=== PATIENT | female | born 2000 | race Hispanic/Latino ===

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

== ENCOUNTER 2022-08-03 20:06 | Observation (INO) | payer BC, MEDICAID ==
[~2022-08-03] VITALS: Ht 157.5 cm; Wt 103.0 kg
[2022-08-03] MEDS ORDERED: LACTATED RINGERS 1000ML 1,000 ML IV SCH (20:30)
[2022-08-03 20:55] VITALS: BP 128/72
[2022-08-03 21:03] LABS: APPEARANCE,URINE CLEAR (CLEAR); BILIRUBIN,URINE NEGATIVE (NEGATIVE); COLOR,URINE LIGHT-YELLOW (YELLOW); GLUCOSE, URINE (UA) 30 mg/dL (NEGATIVE); KETONES,URINE NEGATIVE (NEGATIVE); LEUKOCYTE ESTERASE ,URINE 25 Leu/uL (NEGATIVE); NITRATE,URINE NEGATIVE (NEGATIVE); OCCULT BLOOD,URINE NEGATIVE (NEGATIVE); PROTEIN,URINE NEGATIVE (NEGATIVE); UROBILINOGEN,URINE 0.2 mg/dL (0.2-1.0)
[2022-08-03 21:06] LABS: MUCUS,URINE RARE LPF (None Seen); RBC,URINE 0-1 /HPF (0-1); SQUAMOUS EPITHELIAL CELL,UR FEW /HPF (0-2)
== END 2022-08-03 21:45 | disposition home or self-care (01) ==
LOC: EDH 20:06 → LDH 20:07 → EDH 20:13
PROVIDERS: ADMIT Obstetrics & Gynecology; ATTEND Obstetrics & Gynecology
DX: O26.893 Other specified pregnancy related conditions, third trimester (principal); R10.32 Left lower quadrant pain; Z3A.37 37 weeks gestation of pregnancy
CPT/HCPCS: 81001; G0378 ×2; G0379

== ENCOUNTER 2022-08-12 23:55 | Observation (INO) | payer MEDICAID ==
[~2022-08-12] VITALS: Ht 157.5 cm; Wt 102.5 kg
[2022-08-12 23:56] VITALS: BP 136/70
[2022-08-13] MEDS ORDERED: PREN-196 PO (00:15)
[2022-08-13 00:27] LABS: APPEARANCE,URINE CLEAR (CLEAR); BILIRUBIN,URINE NEGATIVE (NEGATIVE); COLOR,URINE LIGHT-YELLOW (YELLOW); GLUCOSE, URINE (UA) NEGATIVE (NEGATIVE); KETONES,URINE NEGATIVE (NEGATIVE); LEUKOCYTE ESTERASE ,URINE NEGATIVE Leu/uL (NEGATIVE); NITRATE,URINE NEGATIVE (NEGATIVE); OCCULT BLOOD,URINE NEGATIVE (NEGATIVE); PROTEIN,URINE NEGATIVE (NEGATIVE); UROBILINOGEN,URINE 0.2 mg/dL (0.2-1.0)
[2022-08-13 01:05] LABS: AMPHET/METH SCREEN,URINE NEGATIVE (NEGATIVE); BARBITURATE SCREEN, URINE NEGATIVE (NEGATIVE); BENZODIAZEPINES SCREEN,URINE NEGATIVE (NEGATIVE); CANNABINOID SCREEN,URINE NEGATIVE (NEGATIVE); COCAINE SCREEN,URINE NEGATIVE (NEGATIVE); OPIATE SCREEN,URINE NEGATIVE (NEGATIVE); PHENCYCLIDINE SCREEN,URINE NEGATIVE (NEGATIVE)
[2022-08-13] MEDS ORDERED: LACTATED RINGERS 1000ML 1,000 ML IV SCH (02:30)
[2022-08-13] MEDS ORDERED: PROMETHAZINE HCL 25 MG/ML 1ML AMPULE IM PRN (03:00)
[2022-08-13] MEDS ORDERED: MEPERIDINE-PF 50 MG/ML SYG IVP PRN (03:00)
[2022-08-14] MEDS ORDERED: ACET-2079 PO (15:08)
== END 2022-08-13 03:45 | disposition home or self-care (01) ==
LOC: EDH 23:55 → LDH 08-13 00:08 → UNDOADMOB 08-13 00:08
PROVIDERS: ADMIT Obstetrics & Gynecology; ATTEND Obstetrics & Gynecology
DX: O26.899 Other specified pregnancy related conditions, unspecified trimester (principal); R10.9 Unspecified abdominal pain; Z3A.00 Weeks of gestation of pregnancy not specified
CPT/HCPCS: 96361; 96360; 80305; 81003; G0378 ×4; G0379; J7120

== ENCOUNTER 2022-09-13 02:32 | Emergency (ER) | payer MEDICAID ==
[~2022-09-13] VITALS: Ht 157.5 cm; Wt 93.4 kg
[~2022-09-13 02:32] MED LIST: ACET-2079 PO; PREN-196 PO
[2022-09-13 04:16] LABS: BASOPHILS % (AUTO) 0.7 % (0.0-5.0); EOSINOPHILS % (AUTO) 3.7 % (0.0-8.0); HEMATOCRIT 36.3 % (36-48); LYMPHOCYTES % (AUTO) 25.4 % (21.0-51.0); MEAN CORPUSCULAR HEMOGLOBIN 28.9 pg (27.0-33.0); MEAN CORPUSCULAR HGB CONC 32.5 g/dL (32.0-36.0); MONOCYTES % (AUTO) 6.4 % (3.0-13.0); NEUTROPHILS % (AUTO) 63.4 % (40.0-77.0); PLATELET COUNT (AUTO) 247 K/uL (130-400); RED BLOOD CELL COUNT(AUTO) 4.08 MIL/uL (4.00-5.50); RED CELL DISTRIBUTION WIDTH 12.6 % (11.0-15.5); WHITE BLOOD COUNT (AUTO) 7.4 K/uL (4.8-10.8)
[2022-09-13 04:18] LABS: APPEARANCE,URINE CLOUDY (CLEAR); BILIRUBIN,URINE NEGATIVE (NEGATIVE); COLOR,URINE LIGHT-YELLOW (YELLOW); GLUCOSE, URINE (UA) NEGATIVE (NEGATIVE); KETONES,URINE NEGATIVE (NEGATIVE); LEUKOCYTE ESTERASE ,URINE 25 Leu/uL (NEGATIVE); NITRATE,URINE NEGATIVE (NEGATIVE); OCCULT BLOOD,URINE MODERATE (NEGATIVE); PROTEIN,URINE NEGATIVE (NEGATIVE); UROBILINOGEN,URINE 0.2 mg/dL (0.2-1.0)
[2022-09-13 04:24] LABS: BACTERIA,URINE RARE /HPF (None Seen); MUCUS,URINE RARE LPF (None Seen); SQUAMOUS EPITHELIAL CELL,UR MOD /HPF (0-2)
[2022-09-13 04:24] LABS: CREATININE 0.9 mg/dL (0.5-1.5); POTASSIUM 3.8 mmol/L (3.5-5.1)
[2022-09-13 04:29] LABS: ALBUMIN 3.5 g/dL (3.5-5.0); TOTAL PROTEIN, SERUM 6.7 g/dL (6.0-8.3)
[2022-09-13] MEDS ORDERED: CEPH500B PO (05:27)
[2022-09-13 05:44] VITALS: BP 116/89
== END 2022-09-13 05:46 | disposition home or self-care (01) ==
LOC: EDH 02:32
DX: N83.201 Unspecified ovarian cyst, right side (principal); N39.0 Urinary tract infection, site not specified; Z48.89 Encounter for other specified surgical aftercare; Z90.89 Acquired absence of other organs; Z79.899 Other long term (current) drug therapy
CPT/HCPCS: 36415; 74176; 80053; 81001; 84703; 85025

== ENCOUNTER 2022-10-15 08:12 | Emergency (ER) | payer OTHER, MEDICAID ==
[~2022-10-15] VITALS: Ht 157.5 cm; Wt 90.7 kg
[~2022-10-15 08:12] MED LIST changes: +CEPH500B PO
[2022-10-15] MEDS ORDERED: PANTOPRAZOLE 40 MG/VIAL IVP ONE (08:30)
[2022-10-15 08:37] LABS: HCG,QUALITATIVE URINE NEGATIVE (NEGATIVE)
[2022-10-15 08:38] LABS: APPEARANCE,URINE CLEAR (CLEAR); BILIRUBIN,URINE SMALL mg/dL (NEGATIVE); COLOR,URINE YELLOW (YELLOW); GLUCOSE, URINE (UA) NEGATIVE (NEGATIVE); KETONES,URINE 5 mg/dL (NEGATIVE); LEUKOCYTE ESTERASE ,URINE NEGATIVE Leu/uL (NEGATIVE); NITRATE,URINE NEGATIVE (NEGATIVE); OCCULT BLOOD,URINE NEGATIVE (NEGATIVE); PROTEIN,URINE TRACE mg/dL (NEGATIVE); UROBILINOGEN,URINE 0.2 mg/dL (0.2-1.0)
[2022-10-15 08:42] LABS: BASOPHILS % (AUTO) 0.6 % (0.0-5.0); EOSINOPHILS % (AUTO) 1.6 % (0.0-8.0); LYMPHOCYTES % (AUTO) 22.5 % (21.0-51.0); MEAN CORPUSCULAR HEMOGLOBIN 29.8 pg (27.0-33.0); MEAN CORPUSCULAR HGB CONC 34.4 g/dL (32.0-36.0); MEAN CORPUSCULAR VOLUME 86.9 fL (80-100); MONOCYTES % (AUTO) 5.6 % (3.0-13.0); NEUTROPHILS % (AUTO) 69.4 % (40.0-77.0); PLATELET COUNT (AUTO) 294 K/uL (130-400); RED BLOOD CELL COUNT(AUTO) 4.49 MIL/uL (4.00-5.50); RED CELL DISTRIBUTION WIDTH 12.5 % (11.0-15.5)
[2022-10-15 08:52] LABS: CREATININE 0.9 mg/dL (0.5-1.5)
[2022-10-15 08:56] LABS: MUCUS,URINE Moderate LPF (None Seen)
[2022-10-15 08:57] LABS: BACTERIA,URINE Few /HPF (None Seen); RBC,URINE None Seen /HPF (0-1); WBC,URINE 0-1 /HPF (0-1)
[2022-10-15 08:57] LABS: ALBUMIN 3.9 g/dL (3.5-5.0); TOTAL PROTEIN, SERUM 7.4 g/dL (6.0-8.3)
[2022-10-15 09:10] LABS: AMPHET/METH SCREEN,URINE NEGATIVE (NEGATIVE); BARBITURATE SCREEN, URINE NEGATIVE (NEGATIVE); BENZODIAZEPINES SCREEN,URINE NEGATIVE (NEGATIVE); CANNABINOID SCREEN,URINE NEGATIVE (NEGATIVE); COCAINE SCREEN,URINE NEGATIVE (NEGATIVE); OPIATE SCREEN,URINE NEGATIVE (NEGATIVE); PHENCYCLIDINE SCREEN,URINE NEGATIVE (NEGATIVE)
[2022-10-15] MEDS ORDERED: NAPR-1192 PO (10:45)
[2022-10-15 10:55] VITALS: BP 128/81
== END 2022-10-15 10:55 | disposition home or self-care (01) ==
LOC: EDH 08:12
DX: K80.20 Calculus of gallbladder without cholecystitis without obstruction (principal)
CPT/HCPCS: 99284; 96374; 76705; 80053; 80305; 83690; 85025; 81001; 81025; 36415; C9113

== ENCOUNTER 2022-10-27 20:54 | Emergency (ER) | payer OTHER, MEDICAID ==
[~2022-10-27] VITALS: Ht 157.5 cm; Wt 90.3 kg
[~2022-10-27 20:54] MED LIST changes: +NAPR-1192 PO
[2022-10-27] MEDS ORDERED: MORPHINE 2 MG SYG IVP ONE (22:30)
[2022-10-27] MEDS ORDERED: ONDANSETRON 4MG INJ IVP ONE (22:30)
[2022-10-27 22:35] LABS: BASOPHILS % (AUTO) 0.3 % (0.0-5.0); EOSINOPHILS % (AUTO) 0.3 % (0.0-8.0); HEMATOCRIT 41.5 % (36-48); LYMPHOCYTES % (AUTO) 19.3 % (21.0-51.0); MEAN CORPUSCULAR HEMOGLOBIN 29.9 pg (27.0-33.0); MEAN CORPUSCULAR HGB CONC 34.2 g/dL (32.0-36.0); MEAN CORPUSCULAR VOLUME 87.4 fL (80-100); MONOCYTES % (AUTO) 6.3 % (3.0-13.0); NEUTROPHILS % (AUTO) 73.6 % (40.0-77.0); PLATELET COUNT (AUTO) 321 K/uL (130-400); RED BLOOD CELL COUNT(AUTO) 4.75 MIL/uL (4.00-5.50); RED CELL DISTRIBUTION WIDTH 12.1 % (11.0-15.5); WHITE BLOOD COUNT (AUTO) 12.3 K/uL (4.8-10.8)
[2022-10-27 22:40] LABS: APPEARANCE,URINE CLEAR (CLEAR); BILIRUBIN,URINE NEGATIVE (NEGATIVE); COLOR,URINE YELLOW (YELLOW); GLUCOSE, URINE (UA) NEGATIVE (NEGATIVE); HCG,QUALITATIVE URINE NEGATIVE (NEGATIVE); KETONES,URINE NEGATIVE (NEGATIVE); LEUKOCYTE ESTERASE ,URINE NEGATIVE Leu/uL (NEGATIVE); NITRATE,URINE NEGATIVE (NEGATIVE); OCCULT BLOOD,URINE NEGATIVE (NEGATIVE); PH,URINE 6.5 (5.0-8.0); PROTEIN,URINE 10 mg/dL (NEGATIVE)
[2022-10-27 22:43] LABS: CREATININE 0.8 mg/dL (0.5-1.5); POTASSIUM 3.5 mmol/L (3.5-5.1)
[2022-10-27 22:46] LABS: MUCUS,URINE FEW LPF (None Seen); RBC,URINE 0-1 /HPF (0-1); SQUAMOUS EPITHELIAL CELL,UR FEW /HPF (0-2)
[2022-10-27 22:47] LABS: ALBUMIN 4.3 g/dL (3.5-5.0); TOTAL PROTEIN, SERUM 8.2 g/dL (6.0-8.3)
[2022-10-28 00:07] VITALS: BP 124/76
[2022-10-28] MEDS ORDERED: LOPE-198 PO (00:17)
[2022-10-28] MEDS ORDERED: DICY20TA2 PO (00:17)
== END 2022-10-28 00:34 | disposition home or self-care (01) ==
LOC: EDH 20:54
DX: K80.50 Calculus of bile duct without cholangitis or cholecystitis without obstruction (principal); K52.9 Noninfective gastroenteritis and colitis, unspecified; R74.8 Abnormal levels of other serum enzymes; K75.9 Inflammatory liver disease, unspecified; Z90.89 Acquired absence of other organs; Z79.899 Other long term (current) drug therapy
CPT/HCPCS: 99284; 96374; 76705; 96375; 80053; 83690; 85025; 81001; 81025; 36415; J2405

== ENCOUNTER 2022-10-28 07:12 | Inpatient (IN) | payer OTHER, MEDICAID ==
[~2022-10-28] VITALS: Ht 157.5 cm; Wt 92.5 kg
[~2022-10-28 07:12] MED LIST changes: +DICY20TA2 PO; +LOPE-198 PO
[2022-10-28] MEDS ORDERED: PANTOPRAZOLE 40 MG/VIAL IVP ONE (07:30)
[2022-10-28 07:39] LABS: BASOPHILS % (AUTO) 0.4 % (0.0-5.0); EOSINOPHILS % (AUTO) 0.6 % (0.0-8.0); HEMATOCRIT 40.1 % (36-48); LYMPHOCYTES % (AUTO) 15.1 % (21.0-51.0); MEAN CORPUSCULAR HEMOGLOBIN 30.3 pg (27.0-33.0); MEAN CORPUSCULAR HGB CONC 34.4 g/dL (32.0-36.0); MEAN CORPUSCULAR VOLUME 87.9 fL (80-100); MONOCYTES % (AUTO) 5.7 % (3.0-13.0); NEUTROPHILS % (AUTO) 77.8 % (40.0-77.0); PLATELET COUNT (AUTO) 310 K/uL (130-400); RED BLOOD CELL COUNT(AUTO) 4.56 MIL/uL (4.00-5.50); RED CELL DISTRIBUTION WIDTH 12.1 % (11.0-15.5)
[2022-10-28 07:42] LABS: APPEARANCE,URINE CLOUDY (CLEAR); BILIRUBIN,URINE 1 mg/dL (NEGATIVE); COLOR,URINE DARK-YELLOW (YELLOW); GLUCOSE, URINE (UA) NEGATIVE (NEGATIVE); KETONES,URINE NEGATIVE (NEGATIVE); LEUKOCYTE ESTERASE ,URINE 25 Leu/uL (NEGATIVE); NITRATE,URINE NEGATIVE (NEGATIVE); OCCULT BLOOD,URINE NEGATIVE (NEGATIVE); PH,URINE 7.5 (5.0-8.0); PROTEIN,URINE 20 mg/dL (NEGATIVE); UROBILINOGEN,URINE >=8.0 mg/dL (0.2-1.0)
[2022-10-28 07:44] LABS: HCG,QUALITATIVE URINE NEGATIVE (NEGATIVE)
[2022-10-28 07:49] LABS: CREATININE 0.9 mg/dL (0.5-1.5); POTASSIUM 3.7 mmol/L (3.5-5.1)
[2022-10-28] MEDS ORDERED: 0.9%NACL 1000ML 1,000 ML IV ONE (08:00)
[2022-10-28 08:03] LABS: ALBUMIN 4.1 g/dL (3.5-5.0); MUCUS,URINE Few LPF (None Seen); SQUAMOUS EPITHELIAL CELL,UR Moderate /HPF (0-2); TOTAL PROTEIN, SERUM 7.9 g/dL (6.0-8.3)
[2022-10-28 08:04] LABS: BACTERIA,URINE Few /HPF (None Seen); RBC,URINE 0-1 /HPF (0-1)
[2022-10-28] MEDS ORDERED: ZOSYN 3.375GM +NS 50ML IVPB ONE (09:30)
[2022-10-28] MEDS ORDERED: 0.9%NACL 50ML IV SCH (12:30)
[2022-10-28] MEDS: PANTOPRAZOLE 40 MG/VIAL IVP SCH (12:30)
[2022-10-28] MEDS ORDERED: MORPHINE 2 MG SYG IVP PRN (12:30)
[2022-10-28] MEDS ORDERED: KETOROLAC 15MG/ML VIAL (15MG/ML) IV PRN (12:30)
[2022-10-28] MEDS: LACTATED RINGERS 1000ML 1,000 ML IV SCH (12:50)
[2022-10-28] MEDS: THIAMINE HCL 100 MG/ML 2ML VIAL IVP SCH (12:50)
[2022-10-28 13:40] LABS: HEMOGLOBIN A1C 4.7 % (4.0-6.0)
[2022-10-28 13:56] LABS: THYROID STIMULATING HORMONE 0.89 uIU/mL (0.36-3.74)
[2022-10-28 13:58] LABS: ACETAMINOPHEN < 1 mcg/mL (10-30); ALCOHOL, BLOOD < 3 mg/dL (0-10); CRP QUANTITATIVE < 2.00 mg/L (0.00-9.0); SALICYLATE < 2.8 mg/dL (2.8-20.0)
[2022-10-28] MEDS: ZOSYN 3.375GM +NS 50ML IVPB SCH ×2 (14:00→21:10)
[2022-10-28 14:51] VITALS: BP 137/69
[2022-10-28 16:00] VITALS: BP 125/76
[2022-10-28 20:03] LABS: ALBUMIN 3.6 g/dL (3.5-5.0); BILIRUBIN,DIRECT 0.3 mg/dL (0.0-0.3)
[2022-10-28 20:08] VITALS: BP 118/60
[2022-10-28 20:34] LABS: HEPATITIS A IGM ANTIBODY Non-Reactive (Nonreactive); HEPATITIS B SURFACE ANTIGEN Non-Reactive (Nonreactive); HEPATITIS C ANTIBODY Non-Reactive (Nonreactive)
[2022-10-28 20:35] LABS: HEPATITIS B CORE IGM ANTIBODY Non-Reactive (Negative)
[2022-10-28 23:58] VITALS: BP 112/61
[2022-10-29] MEDS: LACTATED RINGERS 1000ML 1,000 ML IV SCH ×2 (01:50→15:10)
[2022-10-29 03:44] VITALS: BP 115/73
[2022-10-29 05:24] LABS: BASOPHILS % (AUTO) 0.6 % (0.0-5.0); EOSINOPHILS % (AUTO) 2.5 % (0.0-8.0); HEMATOCRIT 36.3 % (36-48); LYMPHOCYTES % (AUTO) 41.6 % (21.0-51.0); MEAN CORPUSCULAR HEMOGLOBIN 29.7 pg (27.0-33.0); MEAN CORPUSCULAR HGB CONC 33.3 g/dL (32.0-36.0); MEAN CORPUSCULAR VOLUME 89.2 fL (80-100); MONOCYTES % (AUTO) 6.1 % (3.0-13.0); NEUTROPHILS % (AUTO) 48.9 % (40.0-77.0); PLATELET COUNT (AUTO) 283 K/uL (130-400); RED BLOOD CELL COUNT(AUTO) 4.07 MIL/uL (4.00-5.50); RED CELL DISTRIBUTION WIDTH 12.5 % (11.0-15.5); WHITE BLOOD COUNT (AUTO) 6.7 K/uL (4.8-10.8)
[2022-10-29 05:34] LABS: ALBUMIN 3.4 g/dL (3.5-5.0); CREATININE 0.9 mg/dL (0.5-1.5); POTASSIUM 3.6 mmol/L (3.5-5.1); TOTAL PROTEIN, SERUM 6.6 g/dL (6.0-8.3)
[2022-10-29] MEDS: ZOSYN 3.375GM +NS 50ML IVPB SCH ×3 (05:44→21:49)
[2022-10-29 07:00] VITALS: BP 122/66
[2022-10-29 11:30] VITALS: BP 124/47
[2022-10-29] MEDS: THIAMINE HCL 100 MG/ML 2ML VIAL IVP SCH (12:30)
[2022-10-29] MEDS: PANTOPRAZOLE 40 MG/VIAL IVP SCH (13:00)
[2022-10-29 16:05] VITALS: BP 120/70
[2022-10-29 19:59] VITALS: BP 102/53
[2022-10-29] MEDS: ENOXAPARIN SODIUM 30 MG/0.3 ML SQ SCH (20:00)
[2022-10-29 23:33] VITALS: BP 129/78
[2022-10-30 03:42] VITALS: BP 121/70
[2022-10-30] MEDS: LACTATED RINGERS 1000ML 1,000 ML IV SCH ×2 (04:30→15:53)
[2022-10-30] MEDS: ZOSYN 3.375GM +NS 50ML IVPB SCH ×3 (06:14→23:23)
[2022-10-30 06:28] LABS: BASOPHILS % (AUTO) 0.7 % (0.0-5.0); HEMATOCRIT 36.5 % (36-48); LYMPHOCYTES % (AUTO) 44.5 % (21.0-51.0); MEAN CORPUSCULAR HEMOGLOBIN 29.5 pg (27.0-33.0); MEAN CORPUSCULAR HGB CONC 33.7 g/dL (32.0-36.0); MEAN CORPUSCULAR VOLUME 87.5 fL (80-100); MONOCYTES % (AUTO) 7.5 % (3.0-13.0); PLATELET COUNT (AUTO) 282 K/uL (130-400); RED BLOOD CELL COUNT(AUTO) 4.17 MIL/uL (4.00-5.50); RED CELL DISTRIBUTION WIDTH 12.3 % (11.0-15.5)
[2022-10-30 06:43] LABS: ALBUMIN 3.8 g/dL (3.5-5.0); CREATININE 0.9 mg/dL (0.5-1.5); POTASSIUM 4.4 mmol/L (3.5-5.1)
[2022-10-30 07:10] VITALS: BP 117/66
[2022-10-30] MEDS: THIAMINE HCL 100 MG/ML 2ML VIAL IVP SCH (07:41)
[2022-10-30 11:00] VITALS: BP 131/66
[2022-10-30] MEDS: PANTOPRAZOLE 40 MG/VIAL IVP SCH (15:32)
[2022-10-30 16:25] VITALS: BP 118/76
[2022-10-30] MEDS: ENOXAPARIN SODIUM 30 MG/0.3 ML SQ SCH (19:48)
[2022-10-30 20:00] VITALS: BP 120/55
[2022-10-31] VITALS (28 sets, daily range): BP systolic 113–149; BP diastolic 64–96
[2022-10-31] MEDS: LACTATED RINGERS 1000ML 1,000 ML IV SCH ×2 (04:39→20:30)
[2022-10-31] MEDS: ZOSYN 3.375GM +NS 50ML IVPB SCH ×3 (05:50→22:02)
[2022-10-31 06:15] LABS: BASOPHILS % (AUTO) 0.6 % (0.0-5.0); EOSINOPHILS % (AUTO) 1.6 % (0.0-8.0); HEMATOCRIT 35.5 % (36-48); LYMPHOCYTES % (AUTO) 42.6 % (21.0-51.0); MEAN CORPUSCULAR HEMOGLOBIN 29.7 pg (27.0-33.0); MEAN CORPUSCULAR HGB CONC 33.5 g/dL (32.0-36.0); MEAN CORPUSCULAR VOLUME 88.5 fL (80-100); MONOCYTES % (AUTO) 8.9 % (3.0-13.0); PLATELET COUNT (AUTO) 277 K/uL (130-400); RED BLOOD CELL COUNT(AUTO) 4.01 MIL/uL (4.00-5.50); RED CELL DISTRIBUTION WIDTH 12.3 % (11.0-15.5); WHITE BLOOD COUNT (AUTO) 6.3 K/uL (4.8-10.8)
[2022-10-31 06:39] LABS: INR 1.1 (0.85-1.15); PROTHROMBIN TIME 11.9 SEC (9.6-11.6)
[2022-10-31 06:40] LABS: PARTIAL THROMBOPLASTIN TIME 30.1 SEC (26.3-35.5)
[2022-10-31] MEDS ORDERED: BUPIVACAINE/PF 0.5% 10ML VIAL ONE ×2 (07:35→07:50)
[2022-10-31] MEDS ORDERED: CEFAZOLIN SODIUM 1 GM VIAL ONE (07:35)
[2022-10-31] MEDS ORDERED: LIDOCAINE HCL 1% 20 ML VIAL ONE (07:35)
[2022-10-31] MEDS ORDERED: MIDAZOLAM HCL 1 MG/ML 2ML VIAL ONE (09:39)
[2022-10-31] MEDS ORDERED: PROPOFOL 10 MG/ML 20ML VIAL IV ONE (09:39)
[2022-10-31] MEDS ORDERED: FENTANYL CITRATE PF 50 MCG/1 ML 2ML VIAL ONE ×2 (09:39→10:05)
[2022-10-31] MEDS ORDERED: ROCURONIUM 10MG/1ML SYR 10 MG/ML ML ONE (09:46)
[2022-10-31] MEDS ORDERED: ONDANSETRON 4MG INJ ONE ×2 (09:54→10:56)
[2022-10-31] MEDS ORDERED: NEOSTIGMINE 5MG/5ML SYR IV ONE (10:31)
[2022-10-31] MEDS ORDERED: GLYCOPYRROLATE 1 MG/5 ML SYRINGE ONE (10:31)
[2022-10-31] MEDS ORDERED: MEPERIDINE-PF 25 MG/ML SYG ONE ×2 (10:57→11:11)
[2022-10-31] MEDS ORDERED: KETOROLAC 30MG VIAL (30MG/ML) ONE (10:57)
[2022-10-31] MEDS: PANTOPRAZOLE 40 MG/VIAL IVP SCH (12:40)
[2022-10-31] MEDS ORDERED: ONDANSETRON 4MG INJ IVP PRN (14:30)
[2022-10-31] MEDS ORDERED: ACETAMINOPHEN 325 MG TAB PO PRN (14:30)
[2022-10-31] MEDS ORDERED: HYDROCODONE/ACETAMINOPHEN 5/325 MG TAB PO PRN (14:30)
[2022-10-31] MEDS: THIAMINE HCL 100 MG/ML 2ML VIAL IVP SCH (16:17)
[2022-10-31] MEDS: HYDROCODONE/ACETAMINOPHEN 10/325 MG TAB PO PRN (18:36)
[2022-11-01 04:00] VITALS: BP 128/73
[2022-11-01] MEDS: ZOSYN 3.375GM +NS 50ML IVPB SCH ×2 (06:47→13:36)
[2022-11-01] MEDS: HYDROCODONE/ACETAMINOPHEN 10/325 MG TAB PO PRN (06:54)
[2022-11-01 07:05] VITALS: BP 125/88
[2022-11-01] MEDS: LACTATED RINGERS 1000ML 1,000 ML IV SCH (09:50)
[2022-11-01 11:00] VITALS: BP 124/72
[2022-11-01] MEDS: PANTOPRAZOLE 40 MG/VIAL IVP SCH (13:36)
[2022-11-01] MEDS: THIAMINE HCL 100 MG/ML 2ML VIAL IVP SCH (13:36)
[2022-11-01 17:31] VITALS: BP 112/70
== END 2022-11-01 18:56 | disposition home or self-care (01) | DRG 418 ==
LOC: EDH 07:12 → EDHIP 12:32 → 3BH 14:40
PROVIDERS: ADMIT Internal Medicine; ATTEND Internal Medicine
PROC: 0FT44ZZ Resection of Gallbladder, Percutaneous Endoscopic Approach (ICD-10-PCS; principal; 2022-10-31 09:58)
DX: K80.00 Calculus of gallbladder with acute cholecystitis without obstruction (principal); N39.0 Urinary tract infection, site not specified; K75.89 Other specified inflammatory liver diseases; Z20.822 Contact with and (suspected) exposure to COVID-19; E66.9 Obesity, unspecified; K52.9 Noninfective gastroenteritis and colitis, unspecified; Z98.891 History of uterine scar from previous surgery; Z86.16 Personal history of COVID-19; Z82.49 Family history of ischemic heart disease and other diseases of the circulatory system; Z68.37 Body mass index [BMI] 37.0-37.9, adult; K82.A1 Gangrene of gallbladder in cholecystitis
CPT/HCPCS: 36415; 74181; 76705; 80048; 80053; 80074; 80076; 81001; 81025; 82784; 83036; 83516; 83630; 83690; 83735; 84145; 84443; 85025; 85610; 85651; 85730; 86140; 87046; 87088; 87177; 87507; 87635; 87804; 96374; C9113; G0378; G0481; J0690; J1650; J1885; J2175; J2250; J2405; J2543; J2704; J2710; J3010; J3411; J3490; J7120

== ENCOUNTER 2023-07-17 11:07 | Emergency (ER) | payer BC, MEDICAID, OTHER ==
[~2023-07-17] VITALS: Ht 154.9 cm; Wt 85.7 kg
[~2023-07-17 11:07] MED LIST changes: -CEPH500B PO; -DICY20TA2 PO; -LOPE-198 PO; -NAPR-1192 PO
[2023-07-17 11:56] LABS: APPEARANCE,URINE CLEAR (CLEAR); BILIRUBIN,URINE NEGATIVE (NEGATIVE); COLOR,URINE LIGHT-YELLOW (YELLOW); GLUCOSE, URINE (UA) NEGATIVE (NEGATIVE); KETONES,URINE NEGATIVE (NEGATIVE); LEUKOCYTE ESTERASE ,URINE NEGATIVE Leu/uL (NEGATIVE); NITRATE,URINE NEGATIVE (NEGATIVE); OCCULT BLOOD,URINE NEGATIVE (NEGATIVE); PH,URINE 6.5 (5.0-8.0); PROTEIN,URINE NEGATIVE (NEGATIVE); UROBILINOGEN,URINE 0.2 mg/dL (0.2-1.0)
[2023-07-17 11:59] LABS: ADD UA MICROSCOPIC NO
[2023-07-17 12:06] LABS: BASOPHILS # (AUTO) 0.02 K/uL (0.00-0.20); BASOPHILS % (AUTO) 0.2 % (0.0-5.0); EOSINOPHILS # (AUTO) 0.01 K/uL (0.00-0.70); EOSINOPHILS % (AUTO) 0.1 % (0.0-8.0); HEMATOCRIT 40.5 % (36-48); IMMATURE GRANULOCYTE ABSOLUTE 0.04 K/uL (0-1); LYMPHOCYTES # (AUTO) 0.5 K/uL (1.0-4.8); LYMPHOCYTES % (AUTO) 4.8 % (21.0-51.0); MEAN CORPUSCULAR HGB CONC 34.6 g/dL (32.0-36.0); MEAN CORPUSCULAR VOLUME 86.7 fL (79-99); MONOCYTES # (AUTO) 0.4 K/uL (0.1-1.0); MONOCYTES % (AUTO) 4.2 % (3.0-13.0); NEUTROPHILS # (AUTO) 8.9 K/uL (1.8-7.7); NEUTROPHILS % (AUTO) 90.3 % (40.0-77.0); PLATELET COUNT (AUTO) 281 K/uL (130-400); RED BLOOD CELL COUNT(AUTO) 4.67 MIL/uL (4.00-5.50); RED CELL DISTRIBUTION WIDTH 12.3 % (11.0-15.5); WHITE BLOOD COUNT (AUTO) 9.9 K/uL (4.8-10.8)
[2023-07-17 12:18] LABS: CREATININE 0.7 mg/dL (0.5-1.5); POTASSIUM 3.6 mmol/L (3.5-5.1)
[2023-07-17 12:44] LABS: ALBUMIN 3.9 g/dL (3.5-5.0); BILIRUBIN,TOTAL 0.6 mg/dL (0.2-1.0); TOTAL PROTEIN, SERUM 7.7 g/dL (6.0-8.3)
[2023-07-17] MEDS ORDERED: LACTATED RINGERS 1000ML 1,000 ML IV ONE (13:00)
[2023-07-17] MEDS ORDERED: ONDANSETRON 4MG INJ IVP ONE (13:00)
[2023-07-17 13:12] LABS: SARS-CoV-2, RNA, NAAT NEGATIVE SARS CoV-2 (NEGATIVE)
[2023-07-17 13:18] LABS: INFLUENZA TYPE A Negative For Type A (NEGATIVE); INFLUENZA TYPE B Negative For Type B (NEGATIVE)
[2023-07-17] MEDS ORDERED: DOXY1TAB3 PO (17:09)
[2023-07-17] MEDS ORDERED: PREN1CAP37 PO (17:09)
[2023-07-17 17:11] VITALS: BP 121/75; PULSE 85; RESP 18; O2SAT 98
== END 2023-07-17 17:19 | disposition home or self-care (01) ==
LOC: EDH 11:07
DX: O21.9 Vomiting of pregnancy, unspecified (principal); O26.891 Other specified pregnancy related conditions, first trimester; E86.0 Dehydration; Z3A.01 Less than 8 weeks gestation of pregnancy; Z20.822 Contact with and (suspected) exposure to COVID-19
CPT/HCPCS: 99284; 96374; 76801; 96361; 87635; 80053; 84702; 85025; 87804 ×2; 81003; 36415; C9803; J7120; J2405

== ENCOUNTER 2024-02-24 02:57 | Observation (INO) | payer BC, MEDICAID ==
[~2024-02-24] VITALS: Ht 157.5 cm; Wt 103.0 kg
[~2024-02-24 02:57] MED LIST changes: +DOXY1TAB3 PO; +PREN1CAP37 PO
[2024-02-24 02:58] VITALS: BP 129/74; PULSE 84; RESP 16
[2024-02-24 03:29] LABS: APPEARANCE,URINE CLEAR (CLEAR); BILIRUBIN,URINE NEGATIVE (NEGATIVE); COLOR,URINE COLORLESS (YELLOW); GLUCOSE, URINE (UA) NEGATIVE (NEGATIVE); KETONES,URINE NEGATIVE (NEGATIVE); LEUKOCYTE ESTERASE ,URINE 25 Leu/uL (NEGATIVE); NITRATE,URINE NEGATIVE (NEGATIVE); OCCULT BLOOD,URINE NEGATIVE (NEGATIVE); PROTEIN,URINE NEGATIVE (NEGATIVE); UROBILINOGEN,URINE 0.2 mg/dL (0.2-1.0)
[2024-02-24 03:39] LABS: HEMATOCRIT 33.7 % (36-48); MEAN CORPUSCULAR HEMOGLOBIN 29.2 pg (27.0-33.0); MEAN CORPUSCULAR HGB CONC 32.6 g/dL (32.0-36.0); MEAN CORPUSCULAR VOLUME 89.4 fL (79-99); RED BLOOD CELL COUNT(AUTO) 3.77 MIL/uL (4.00-5.50); RED CELL DISTRIBUTION WIDTH 13.2 % (11.0-15.5); WHITE BLOOD COUNT (AUTO) 11.1 K/uL (4.8-10.8)
[2024-02-24 03:42] LABS: ADD UA MICROSCOPIC YES
[2024-02-24 03:43] LABS: MUCUS,URINE RARE LPF (None Seen); SQUAMOUS EPITHELIAL CELL,UR RARE /HPF (0-2)
[2024-02-24] MEDS: LACTATED RINGERS 1000ML IV ONE (03:46)
[2024-02-24 04:18] LABS: HIV 1&2 ANTIBODY Non-Reactive (Negative); HIV-1 p24 Antigen Non-Reactive (Negative)
[2024-02-24] MEDS: LACTATED RINGERS 1000ML 1,000 ML IV SCH (05:49)
[2024-02-24 08:11] LABS: RAPID PLASMA REAGIN NONREACTIVE (NONREACTIVE)
== END 2024-02-24 06:50 | disposition home or self-care (01) ==
LOC: EDH 02:57 → LDH 02:58
PROVIDERS: ADMIT Obstetrics & Gynecology; ATTEND Obstetrics & Gynecology
DX: O26.893 Other specified pregnancy related conditions, third trimester (principal); R53.1 Weakness; R10.9 Unspecified abdominal pain; Z3A.38 38 weeks gestation of pregnancy; Z79.899 Other long term (current) drug therapy
CPT/HCPCS: 96360; 85027; 86592; 86850; 86900; 86901; 82948; 87340; 86701; 87390; 81001; 36415; 76819; G0378 ×4; G0379; J7120